=== PATIENT | male | born 1965 | race Caucasian/White ===

== ENCOUNTER 2017-11-19 21:03 | Emergency (ER) | payer BC, OTHER ==
[2017-11-19 21:21] VITALS: BP 116/74; PULSE 78; TEMP 97.9; BMI 26.6
--- NOTE | 2017-11-19 22:10 | PDOC ---
History of Present Illness - General History Source: Patient Exam Limitations: No Limitations - History of Present Illness Initial Comments: 11/19/17 22:18 The patient is a 52 year old male, with no significant past medical history, who presents to the emergency department with, approx one day of chest discomfort. The patient states for the past 24 hours he has had a chest discomfort which is midsternal, non radiating. The patient also reports mild shortness of breath which is made worse with deep inspiration. The patient states he took four 81 mg aspirin for the chest discomfort prior to arrival. He denies recent travel. He denies family history of cardiac disease. He denies any recent fevers, chills, headache or dizziness. He denies any recent nausea, vomit, diarrhea or constipation. He denies any recent dysuria, frequency, urgency or hematuria. Allergies: Iodinated Contrast - Oral and IV Dye, [DYE] Social History: Smoker (2 packs per day). Denies recreational drug use. <Damian Patton - Last Filed: 11/19/17 22:18> - General History Source: Patient <Lacho Enamorado - Last Filed: 11/19/17 23:53> - General Chief Complaint: Chest Pain Stated Complaint: CHEST PAIN Time Seen by Provider: 11/19/17 22:04 Past History <Damian Patton - Last Filed: 11/19/17 22:18> - Past Medical History Anemia: No Asthma: No Cancer: No Cardiac Disorders: No CVA: No COPD: No CHF: No Dementia: No Diabetes: No GI Disorders: No Disorders: No HTN: No Hypercholesterolemia: No Kidney Stones: Yes (X 7) Liver Disease: No Seizures: No Thyroid Disease: No - Surgical History Abdominal Surgery: No Appendectomy: No Cardiac Surgery: No Cholecystectomy: No Lung Surgery: No Neurologic Surgery: No Orthopedic Surgery: No - Suicide/Smoking/Psychosocial Hx Smoking Status: No Smoking History: Current every day smoker Have you smoked in the past 12 months: Yes Number of Cigarettes Smoked Daily: 20 Information on smoking cessation initiated: No 'Breaking Loose' booklet given: 03/10/12 Hx Alcohol Use: Yes (SOCIALLY) Drug/Substance Use Hx: No Substance Use Type: Alcohol Hx Substance Use Treatment: No <Lacho Enamorado - Last Filed: 11/19/17 23:53> - Past Medical History Allergies/Adverse Reactions: Allergies Allergy/AdvReac Type Severity Reaction Status Date / Time Iodinated Contrast- Oral and Allergy Severe nausea, Verified 11/19/17 21:17 IV Dye difficulty [Iodinated Contrast Media - breathing IV Dye] DYE Allergy Severe nausea, Uncoded 11/19/17 21:17 difficulty breathing Home Medications: Ambulatory Orders Sulfamethoxazole/Trimethoprim [Bactrim *Ds*] 1 tab PO BID #20 tablet 11/19/17 Review of Systems - Review of Systems Comments:: 11/19/17 22:19 CONSTITUTIONAL: Absent: fever, chills, diaphoresis, generalized weakness, malaise, loss of appetite HEENT: Absent: rhinorrhea, nasal congestion, throat pain, throat swelling, difficulty swallowing, mouth swelling, ear pain, eye pain, visual Changes CARDIOVASCULAR: Present: (+) Chest discomfort. Absent: syncope, palpitations, irregular heart rate, lightheadedness, peripheral edema RESPIRATORY: Present: (+) Shortness of breath. Absent: cough, dyspnea with exertion, orthopnea, wheezing, stridor, hemoptysis GASTROINTESTINAL: Absent: abdominal pain, abdominal distension, nausea, vomiting, diarrhea, constipation, melena, hematochezia GENITOURINARY: Absent: dysuria, frequency, urgency, hesitancy, hematuria, flank pain, genital pain MUSCULOSKELETAL: Absent: myalgia, arthralgia, joint swelling SKIN: Absent: rash, itching, pallor HEMATOLOGIC/IMMUNOLOGIC: Absent: easy bleeding, easy bruising, lymphadenopathy, frequent infections ENDOCRINE: Absent: unexplained weight gain, unexplained weight loss, heat intolerance, cold intolerance NEUROLOGIC: Absent: headache, focal weakness or paresthesias, dizziness, unsteady gait, seizure, mental status changes, bladder or bowel incontinence PSYCHIATRIC: Absent: anxiety, depression, suicidal or homicidal ideation, hallucinations. <Damian Patton - Last Filed: 11/19/17 22:18> *Physical Exam - Vital Signs Last Vital Signs Temp Pulse Resp BP Pulse Ox 97.9 F 78 16 116/74 100 11/19/17 21:18 11/19/17 21:18 11/19/17 21:18 11/19/17 21:18 11/19/17 21:18 - Physical Exam Comments: 11/19/17 22:20 GENERAL: Well developed, well nourished. Awake and alert. No acute distress. HEENT: Normocephalic, atraumatic. PERRLA, EOMI. No conjunctival pallor. Sclera are non- icteric. Moist mucous membranes. Oropharynx is clear. NECK: Supple. Full ROM. No JVD. Carotid pulses 2+ and symmetric, without bruits. No thyromegaly. No lymphadenopathy. CARDIOVASCULAR: Regular rate and rhythm. No murmurs, rubs, or gallops. Distal pulses are 2+ and symmetric. PULMONARY: No evidence of respiratory distress. Lungs clear to auscultation bilaterally. No wheezing, rales or rhonchi. ABDOMINAL: Soft. Non-tender. Non-distended. No rebound or guarding. No organomegaly. Normoactive bowel sounds. MUSCULOSKELETAL Normal range of motion at all joints. No bony deformities or tenderness. No CVA tenderness. EXTREMITIES: No cyanosis. No clubbing. No edema. No calf tenderness. SKIN: Warm and dry. Normal capillary refill. No rashes. No jaundice. NEUROLOGICAL: Alert, awake, appropriate. Cranial nerves 2-12 intact. No deficits to light touch and temperature in face, upper extremities and lower extremities. No motor deficits in the in face, upper extremities and lower extremities. Normoreflexic in the upper and lower extremities. Normal speech. Toes are down- going bilaterally. Gait is normal without ataxia. PSYCHIATRIC: Cooperative. Good eye contact. Appropriate mood and affect. <Damian Patton - Last Filed: 11/19/17 22:18> - Vital Signs Last Vital Signs Temp Pulse Resp BP Pulse Ox 97.9 F 78 16 116/74 100 11/19/17 21:18 11/19/17 21:18 11/19/17 21:18 11/19/17 21:18 11/19/17 21:18 <Lacho Enamorado - Last Filed: 11/19/17 23:53> Heart Score/ECG Review #1 11/19/17 22:21 Normal Sinus Rhythm at 68 bpm. QT/QTc at 418/[address] Enamorado. <Damian Patton - Last Filed: 11/19/17 22:18> ED Treatment Course - LABORATORY CBC & Chemistry Diagram: 11/19/17 22:31 11/19/17 22:31 <Lacho Enamorado - Last Filed: 11/19/17 23:53> *DC/Admit/Observation/Transfer - Attestations Scribe Attestion: 11/19/17 22:22 Documentation prepared by Damian Patton, acting as emergency medical dispatcher for Lacho Enamorado DO. <Damian Patton - Last Filed: 11/19/17 22:18> - Discharge Dispostion Admit: No <Lacho Enamorado - Last Filed: 11/19/17 23:53> Diagnosis at time of Disposition: Chest pain - Discharge Dispostion Disposition: HOME Condition at time of disposition: Stable - Prescriptions Prescriptions: Sulfamethoxazole/Trimethoprim [Bactrim *Ds*] 1 tab PO BID #20 tablet - Referrals Referrals: Rebecca Galindo MD [Primary Care Provider] - Milind Guan MD, MD [Staff Physician] - Naveed Burrell MD [Staff Physician] - - Patient Instructions Printed Discharge Instructions: DI for Chest Pain Additional Instructions: Please take medication as directed. Avoid smoking cigarettes as much as possible. Follow up with doctor referred to you here in the ER in the next two days if symptoms progress
[2017-11-19 22:40] LABS: BASO % 0.8 % (0-2.0); EOS % 2.4 % (0-4.5); HEMATOCRIT 38.7 % (35.4-49); HEMOGLOBIN 13.8 GM/dL (11.7-16.9); LYMPH % 42.8 % (8-40); MCH 32.4 pg (25.7-33.7); MCHC 35.6 g/dl (32.0-35.9); MEAN CELL VOLUME 90.9 fl (80-96); MEAN PLT VOLUME 7.7 fl (7.5-11.1); MONO % 9.5 % (3.8-10.2); NEUT % 44.5 % (42.8-82.8); PLATELET COUNT 252 K/MM3 (134-434); RBC 4.26 M/mm3 (4.00-5.60); RDW 13.3 % (11.9-15.9); WHITE BLOOD COUNT 5.2 K/mm3 (4.0-10.0)
[2017-11-19 22:57] LABS: MAGNESIUM 2.2 mg/dL (1.8-2.4)
[2017-11-19 23:02] LABS: ALBUMIN 3.9 g/dl (3.4-5.0); ANION GAP 6 (8-16); BILIRUBIN,TOTAL 0.4 mg/dL (0.2-1.0); BLOOD UREA NITROGEN 13 mg/dL (7-18); CALCIUM 8.3 mg/dL (8.5-10.1); CHLORIDE 104 mmol/L (98-107); CO2 29 mmol/L (21-32); CREATININE 0.9 mg/dL (0.7-1.3); POTASSIUM 4.8 mmol/L (3.5-5.1); SGOT/AST 20 U/L (15-37); SGPT/ALT 43 U/L (12-78); SODIUM 139 mmol/L (136-145); TOT PROT 6.8 g/dl (6.4-8.2)
[2017-11-19 23:04] LABS: ALK PHOS 88 U/L (45-117)
[2017-11-19 23:11] LABS: GLUCOSE,RANDOM 112 mg/dL (74-106)
[2017-11-19] MEDS ORDERED: SULFAMETHOXAZOLE/TRIMETHOPRIM 800MG/160MG D.S. TABLET PO ONE (23:49)
[2017-11-19] MEDS ORDERED: SULFAMETHOXAZOLE/TRIMETHOPRIM 800MG/160MG D.S. TABLET ONE (23:54)
--- NOTE | 2017-11-20 14:33 | EKG ---
Test Reason : Blood Pressure : / mmHG Vent. Rate : 068 BPM Atrial Rate : 068 BPM P-R Int : 142 ms QRS Dur : 076 ms QT Int : 418 ms P-R-T Axes : 031 022 018 degrees QTc Int : 444 ms NORMAL SINUS RHYTHM NORMAL ECG WHEN COMPARED WITH ECG OF 15-FEB-2010 09:33, NO SIGNIFICANT CHANGE WAS FOUND Confirmed by TATIANNA ANGELES MD ([id number]) on 11/20/2017 2:33:47 PM Referred By: Confirmed By:TATIANNA ANGELES MD
== END 2017-11-20 00:02 | disposition home or self-care (01) ==
LOC: JER 21:03
DX: R07.9 Chest pain, unspecified (principal)
CPT/HCPCS: 36415; 71046-TC-FY; 80053; 82550; 83690; 83735; 84484; 85025; 93005; 93010; 99282-25

== ENCOUNTER 2019-04-03 11:26 | Inpatient (IN) | payer OTHER ==
[2019-04-03 13:18] VITALS: BMI 29.6
--- NOTE | 2019-04-03 14:47 | HP ---
COWS - Scale Resting Pulse: 1= [place] 81-100 Sweatin= Chills/Flushing Restless Observation: 1= Difficult to Sit Still Pupil Size: 1= Pupils >than Normal Bone or Joint Aches: 2= Severe Diffuse Aches Runny Nose/ Eye Tearin= Runny Nose/Eyes GI Upset > 30mins: 2= Nausea/Diarrhea Tremor Observation: 2= Slight Tremor Visible Yawning Observation: 1= 1-2x During Session Anxiety or Irritability: 2=Irritable/Anxious Goose Flesh Skin: 0=Smooth Skin COWS Score: 15 CIWA Score Nausea/Vomitin Muscle Tremors: 2 Anxiety: 2 Agitation: 2 Paroxysmal Sweats: 1-Minimal Palms Moist Orientation: 0-Oriented Tacttile Disturbances: 1-Very Mild Itch/Numbness Auditory Disturbances: 0-None Visual Disturbances: 1-Very Mild Sensitivity Headache: 2-Mild CIWA-Ar Total Score: 13 - Admission Criteria [facility] Guidelines: Admission for Medically Managed Detox: Requires at least one of the followin. CIWA greater than 12 2. Seizures within the past 24 hours 3. Delirium tremens within the past 24 hours 4. Hallucinations within the past 24 hours 5. Acute intervention needed for co occurring medical disorder 6. Acute intervention needed for co occurring psychiatric disorder 7. Severe withdrawal that cannot be handled at a lower level of care (continued vomiting, continued diarrhea, abnormal vital signs) requiring intravenous medication and/or fluids 8. Admission ROS [facility] Chief Complaint: i need help to stop using from heroin and alcohol Allergies/Adverse Reactions: Allergies Allergy/AdvReac Type Severity Reaction Status Date / Time Iodinated Contrast- Oral and Allergy Mild Verified 04/03/19 17:08 IV Dye History of Present Illness: this 53 years old male with heroin and alcohol dependence,seeking detox, withdrawal symptom, last detox 15 years ago denied seizure hyperchoesterolemia low back pain with sciatica right depression longest sobriety 1 year plan for out patient program Exam Limitations: No Limitations - Ebola screening Have you traveled outside of the country in the last 21 days: No (N) Have you had contact with anyone from an Ebola affected area: No Do you have a fever: No - Review of Systems Constitutional: Chills, Loss of Appetite, Malaise, Night Sweats, Changes in sleep, Weakness EENT: reports: Tearing, Nose Congestion Respiratory: reports: No Symptoms reported Cardiac: reports: No Symptoms Reported GI: reports: Nausea, Vomiting, Abdominal cramping : reports: No Symptoms Reported Musculoskeletal: reports: Back Pain, Joint Pain, Muscle Pain, Joint Stiffness Integumentary: reports: Dryness Neuro: reports: Headache, Tremors Endocrine: reports: No Symptoms Reported Hematology: reports: No Symptoms Reported Psychiatric: reports: No Sypmtoms Reported, Judgement Intact, Mood/Affect Appropiate, Orientated x3, Depressed Other Systems: Reviewed and Negative Patient History - Patient Medical History Hx Anemia: No Hx Asthma: No Hx Chronic Obstructive Pulmonary Disease (COPD): No Hx Cancer: No Hx Cardiac Disorders: No Hx Congestive Heart Failure: No Hx Hypertension: No Hx Hypercholesterolemia: Yes Hx Pacemaker: No HX Cerebrovascular Accident: No Hx Seizures: No Hx Dementia: No Hx Diabetes: No Hx Gastrointestinal Disorders: No Hx Liver Disease: No Hx Genitourinary Disorders: No Hx Sexually Transmitted Disorders: No Hx Renal Disease (ESRD): No Hx Thyroid Disease: No Hx Human Immunodeficiency Virus (HIV): No (last 2013 negative) Hx Hepatitis C: No Hx Depression: Yes Hx Suicide Attempt: No Hx Bipolar Disorder: No Hx Schizophrenia: No Other Medical History: no suicidal,no homicidal - Patient Surgical History Past Surgical History: Yes Hx Neurologic Surgery: No Hx Cataract Extraction: No Hx Cardiac Surgery: No Hx Lung Surgery: No Hx Breast Surgery: No Hx Breast Biopsy: No Hx Abdominal Surgery: No Hx Appendectomy: No Hx Cholecystectomy: No Hx Genitourinary Surgery: No Hx Section: No Hx Orthopedic Surgery: No Hx Hysterectomy: No Other Surgical History: INGUINAL HERNIA, RIGHT 10 years ago Anesthesia Reaction: No - PPD History Previous Implant?: Yes Documented Results: Negative w/o proof PPD to be Administered?: No - Smoking Cessation Smoking history: Current every day smoker Have you smoked in the past 12 months: Yes Aproximately how many cigarettes per day: 20 Hx Chewing Tobacco Use: No Initiated information on smoking cessation: Yes 'Breaking Loose' booklet given: 04/03/19 - Substance & Tx. History Hx Alcohol Use: Yes Hx Substance Use: Yes Substance Use Type: Alcohol, Heroin Hx Substance Use Treatment: Yes (2003 unknown facility) - Substances abused Alcohol Substance route: Oral Frequency: Daily Amount used: 1 pint of scotch/bourbon Age of first use: 28 Date of last use: 04/01/19 Heroin Substance route: Inhalation Frequency: Daily Amount used: 10 bags Age of first use: 28 Date of last use: 04/03/19 Alprazolam (Xanax) Substance route: Oral Frequency: 3-6 times per week Amount used: 2 mgs to 2.5 mgs Age of first use: 27 Date of last use: 04/01/19 Family Disease History - Family Disease History Family History: Denies Family Disease History: Diabetes: Father (alive), Heart Disease: Father, Other: Mother () Admission Physical Exam [facility] - Vital Signs Vital Signs: Vital Signs - 24 hr 04/03/19 04/03/19 13:04 13:31 Temperature 98.7 F 98.7 F Pulse Rate 90 90 Respiratory 18 18 Rate Blood Pressure 117/68 117/68 - Physical General Appearance: Yes: Moderate Distress, Tremorous, Irritable, Sweating, Anxious HEENTM: Yes: Normal ENT Inspection, [place], Pharynx Normal Respiratory: Yes: Lungs Clear, Normal Breath Sounds, No Respiratory Distress Neck: Yes: Within Normal Limits, Supple, Trachea in good position Breast: Yes: Within Normal Limits Cardiology: Yes: Within Normal Limits, Regular Rhythm, Regular Rate, S1, S2 Abdominal: Yes: Within Normal Limits, Normal Bowel Sounds, Non Tender, Flat, Soft Genitourinary: Yes: Within Normal Limits Back: Yes: Muscle Spasm Musculoskeletal: Yes: Back pain, Muscle Pain Extremities: Yes: Tremors, Other (contraction of tendon in left hand for 15 years) Neurological: Yes: planning feeder II-XII NML intact, Fully Oriented, Alert, Motor Strength 5/5 Integumentary: Yes: Dry Lymphatic: Yes: Within Normal Limits - Diagnostic (1) Opioid dependence with withdrawal Current Visit: Yes Status: Acute (2) Alcohol dependence with uncomplicated withdrawal Current Visit: Yes Status: Acute (3) Sedative, hypnotic or anxiolytic dependence with withdrawal, uncomplicated Current Visit: Yes Status: Acute (4) Nicotine dependence Current Visit: Yes Status: Acute (5) Dehydration Current Visit: Yes Status: Acute (6) Hypercholesterolemia Current Visit: Yes Status: Acute Cleared for Admission [facility] - Detox or Rehab [facility] Level of Care: Medically Managed Detox Regimen/Protocol: Methadone/Valium Breathalyzer - Breathalyzer Breathalyzer: 0 Urine Drug Screen - Test Device Lot number: [id number]. Expiration date: 12/29/20 - Results Drug screen NEGATIVE: No Urine drug screen results: THC-Marijuana, MET-Methamphetamine, FEN-Fentanyl, MOP -Opiates, OXY-Oxycodone, MTD-Methadone, BZO-Benzodiazepines Inpatient Rehab Admission - Rehab Decision to Admit Inpatient rehab admission?: No
[2019-04-03] MEDS ORDERED: MAGNESIUM CITRATE 300 ML BOTTLE PO PRN (15:06)
[2019-04-03] MEDS ORDERED: hydrOXYzine HCL 25 MG TABLET (FP) PO PRN (15:06)
[2019-04-03] MEDS ORDERED: ACETAMINOPHEN 325 MG TABLET (FP) PO PRN ×2 (15:06)
[2019-04-03] MEDS ORDERED: BISMUTH SUBSALICYLATE 524 MG/30 ML UD PO PRN (15:06)
[2019-04-03] MEDS ORDERED: MAG HYDROX/AL HYDROX/SIMETH 30 ML UNIT-DOSE CUP PO PRN (15:06)
[2019-04-03] MEDS ORDERED: METHADONE HCL 10 MG TABLET (FOR DETOX USE ONLY) PO ONE (15:06)
[2019-04-03] MEDS ORDERED: MAGNESIUM HYDROX 2400MG/30ML ORAL SUSPENSION 30 ML CUP PO PRN (15:06)
[2019-04-03] MEDS ORDERED: MENTHOL/PHENOL 1 EACH UD MM PRN (15:06)
[2019-04-03] MEDS ORDERED: IBUPROFEN 400 MG TABLET (FP) PO PRN (15:06)
[2019-04-03] MEDS: diazePAM 5 MG TABLET PO PRN (17:31)
[2019-04-03] MEDS: cloNIDine HCL 0.1 MG TABLET PO PRN (17:33)
[2019-04-03] MEDS: THIAMINE HCL 100 MG TABLET (FP) PO SCH (22:44)
[2019-04-03] MEDS: diazePAM 5 MG TABLET PO SCH (22:45)
[2019-04-03] MEDS: ATORVASTATIN CA 20 MG TABLET (FP) PO SCH (22:45)
[2019-04-03] MEDS: MELATONIN 5 MG TABLETS PO PRN (22:45)
[2019-04-04] MEDS: diazePAM 5 MG TABLET PO SCH ×3 (06:28→22:05)
[2019-04-04] MEDS ORDERED: METHADONE HCL 10 MG TABLET (FOR DETOX USE ONLY) ONE (08:21)
[2019-04-04] MEDS ORDERED: METHADONE HCL 5 MG TABLET (FOR DETOX USE ONLY) ONE (08:22)
[2019-04-04] MEDS ORDERED: METHADONE (DETOX) 20 MG, METHADONE (DETOX) 5 MG PO ONE (10:00)
[2019-04-04] MEDS: PRENATAL VITAMINS W/ FOLIC ACID TABLET (FP) PO SCH (10:08)
[2019-04-04] MEDS: diazePAM 5 MG TABLET PO PRN ×2 (10:09→17:17)
[2019-04-04] MEDS: METHOCARBAMOL 500 MG TABLET PO PRN ×2 (10:11→17:19)
[2019-04-04 11:35] LABS: HEMOGLOBIN 15.7 GM/dL (11.7-16.9); MCHC 34.1 g/dl (32.0-35.9); MEAN CELL VOLUME 90.8 fl (80-96); MEAN PLT VOLUME 8.1 fl (7.5-11.1); PLATELET COUNT 269 K/MM3 (134-434); RBC 5.07 M/mm3 (4.00-5.60); RDW 13.6 % (11.9-15.9); WHITE BLOOD COUNT 5.6 K/mm3 (4.0-10.0)
[2019-04-04 11:37] LABS: ALBUMIN 4.2 g/dl (3.4-5.0); BILIRUBIN,TOTAL 1.6 mg/dL (0.2-1); BLOOD UREA NITROGEN 12.6 mg/dL (7-18); CALCIUM 9.2 mg/dL (8.5-10.1); CREATININE 0.9 mg/dL (0.55-1.3); POTASSIUM 4.3 mmol/L (3.5-5.1); TOT PROT 7.6 g/dl (6.4-8.2)
--- NOTE | 2019-04-04 11:52 | PN ---
[facility] CIWA - CIWA Score Nausea/Vomitin-Mild Nausea/No Vomiting Muscle Tremors: 3 Anxiety: 3 Agitation: 3 Paroxysmal Sweats: 1-Minimal Palms Moist Orientation: 0-Oriented Tacttile Disturbances: 0-None Auditory Disturbances: 0-None Visual Disturbances: 0-None Headache: 1-Very Mild CIWA-Ar Total Score: 12 BHS COWS - Scale Resting Pulse: 0= [place] 80 or Below Sweatin= Chills/Flushing Restless Observation: 1= Difficult to Sit Still Pupil Size: 0= Normal to Room Light Bone or Joint Aches: 2= Severe Diffuse Aches Runny Nose/ Eye Tearin= Nasal Congestion GI Upset > 30mins: 2= Nausea/Diarrhea Tremor Observation of Outstretched Hands: 1= Tremor [place], Not Seen Yawning Observation: 2= >3x During Session Anxiety or Irritability: 2=Irritable/Anxious Goose Flesh Skin: 0=Smooth Skin COWS Score: 12 S Progress Note (SOAP) Subjective: 53 yeare old male admitted on 04/03/19 for alcohol and opiate withdrawal sx management feeling restlessness that "I am using heroin for 25 years" discuss medication assisted treatment program patient agrees to consider suboxone maintaining program Objective: 04/04/19 11:52 Vital Signs Temperature 98.2 F 04/04/19 09:28 Pulse Rate 53 L 04/04/19 09:28 Respiratory Rate 18 04/04/19 09:28 Blood Pressure 123/67 04/04/19 09:28 O2 Sat by Pulse Oximetry (%) Laboratory Last Values WBC 5.6 K/mm3 (4.0-10.0) 04/04/19 08:00 RBC 5.07 M/mm3 (4.00-5.60) 04/04/19 08:00 Hgb 15.7 GM/dL (11.7-16.9) 04/04/19 08:00 Hct 46.0 % (35.4-49) D 04/04/19 08:00 MCV 90.8 fl (80-96) 04/04/19 08:00 MCH 31.0 pg (25.7-33.7) 04/04/19 08:00 MCHC 34.1 g/dl (32.0-35.9) 04/04/19 08:00 RDW 13.6 % (11.9-15.9) 04/04/19 08:00 Plt Count 269 K/MM3 (134-434) 04/04/19 08:00 MPV 8.1 fl (7.5-11.1) 04/04/19 08:00 Sodium 142 mmol/L (136-145) 04/04/19 08:00 Potassium 4.3 mmol/L (3.5-5.1) 04/04/19 08:00 Chloride 105 mmol/L (98-107) 04/04/19 08:00 Carbon Dioxide 30 mmol/L (21-32) 04/04/19 08:00 Anion Gap 6 MMOL/L (8-16) L 04/04/19 08:00 BUN 12.6 mg/dL (7-18) 04/04/19 08:00 Creatinine 0.9 mg/dL (0.55-1.3) 04/04/19 08:00 Est GFR (CKD-EPI)AfAm 114.21 04/04/19 08:00 Est GFR (CKD-EPI)NonAf 98.54 04/04/19 08:00 Random Glucose 77 mg/dL (74-106) 04/04/19 08:00 Calcium 9.2 mg/dL (8.5-10.1) 04/04/19 08:00 Total Bilirubin 1.6 mg/dL (0.2-1) H 04/04/19 08:00 AST 23 U/L (15-37) 04/04/19 08:00 ALT 37 U/L (13-61) 04/04/19 08:00 Alkaline Phosphatase 98 U/L (45-117) 04/04/19 08:00 Total Protein 7.6 g/dl (6.4-8.2) 04/04/19 08:00 Albumin 4.2 g/dl (3.4-5.0) 04/04/19 08:00 RPR Titer Nonreactive (NONREACTIVE) 04/04/19 08:00 lab noted Assessment: 04/04/19 11:52 alcohol and opiate withdrawal sx Plan: continue alcohol and opiate detox
[2019-04-04] MEDS: cloNIDine HCL 0.1 MG TABLET PO PRN ×2 (15:06→19:58)
[2019-04-04] MEDS: THIAMINE HCL 100 MG TABLET (FP) PO SCH (22:04)
[2019-04-04] MEDS: ATORVASTATIN CA 20 MG TABLET (FP) PO SCH (22:04)
[2019-04-04] MEDS: MELATONIN 5 MG TABLETS PO PRN (22:05)
[2019-04-05] MEDS: diazePAM 5 MG TABLET PO PRN ×4 (03:54→22:26)
[2019-04-05] MEDS: cloNIDine HCL 0.1 MG TABLET PO PRN ×4 (05:55→22:49)
[2019-04-05] MEDS: diazePAM 5 MG TABLET PO SCH ×2 (05:55→18:04)
[2019-04-05] MEDS: PRENATAL VITAMINS W/ FOLIC ACID TABLET (FP) PO SCH (09:33)
[2019-04-05] MEDS ORDERED: METHADONE HCL 10 MG TABLET (FOR DETOX USE ONLY) PO ONE (10:00)
--- NOTE | 2019-04-05 11:55 | EKG ---
Test Reason : Blood Pressure : / mmHG Vent. Rate : 054 BPM Atrial Rate : 054 BPM P-R Int : 132 ms QRS Dur : 088 ms QT Int : 500 ms P-R-T Axes : 000 031 013 degrees QTc Int : 474 ms SINUS BRADYCARDIA OTHERWISE NORMAL ECG WHEN COMPARED WITH ECG OF 19-NOV-2017 21:16, NO SIGNIFICANT CHANGE WAS FOUND Confirmed by ELICEO CUELLO MD ([id number]) on 04/05/2019 11:54:58 AM Referred By: Confirmed By:ELICEO CUELLO MD
--- NOTE | 2019-04-05 12:49 | PN ---
S CIWA - CIWA Score Nausea/Vomitin-Mild Nausea/No Vomiting Muscle Tremors: 2 Anxiety: 2 Agitation: 2 Paroxysmal Sweats: 1-Minimal Palms Moist Orientation: 0-Oriented Tacttile Disturbances: 0-None Auditory Disturbances: 0-None Visual Disturbances: 0-None Headache: 1-Very Mild CIWA-Ar Total Score: 9 BHS COWS - Scale Resting Pulse: 0= [place] 80 or Below Sweatin= Chills/Flushing Restless Observation: 0= Sits Still Pupil Size: 0= Normal to Room Light Bone or Joint Aches: 1= Mild Discomfort Runny Nose/ Eye Tearin= Nasal Congestion GI Upset > 30mins: 2= Nausea/Diarrhea Tremor Observation of Outstretched Hands: 1= Tremor [place], Not Seen Yawning Observation: 1= 1-2x During Session Anxiety or Irritability: 2=Irritable/Anxious Goose Flesh Skin: 0=Smooth Skin COWS Score: 9 S Progress Note (SOAP) Subjective: 53 years old male anxiously pacing back and forth on hallway reporting suboxon helped him stay sober months to one year by history but hesitate returning back to suboxone provider introduce revelation where to begin suboxone or vivitrol community resources will be provided upon discharge Objective: 04/05/19 13:07 Vital Signs Temperature 97.0 F L 04/05/19 09:37 Pulse Rate 70 04/05/19 09:37 Respiratory Rate 18 04/05/19 09:37 Blood Pressure 109/76 04/05/19 09:37 O2 Sat by Pulse Oximetry (%) Laboratory Last Values WBC 5.6 K/mm3 (4.0-10.0) 04/04/19 08:00 RBC 5.07 M/mm3 (4.00-5.60) 04/04/19 08:00 Hgb 15.7 GM/dL (11.7-16.9) 04/04/19 08:00 Hct 46.0 % (35.4-49) D 04/04/19 08:00 MCV 90.8 fl (80-96) 04/04/19 08:00 MCH 31.0 pg (25.7-33.7) 04/04/19 08:00 MCHC 34.1 g/dl (32.0-35.9) 04/04/19 08:00 RDW 13.6 % (11.9-15.9) 04/04/19 08:00 Plt Count 269 K/MM3 (134-434) 04/04/19 08:00 MPV 8.1 fl (7.5-11.1) 04/04/19 08:00 Sodium 142 mmol/L (136-145) 04/04/19 08:00 Potassium 4.3 mmol/L (3.5-5.1) 04/04/19 08:00 Chloride 105 mmol/L (98-107) 04/04/19 08:00 Carbon Dioxide 30 mmol/L (21-32) 04/04/19 08:00 Anion Gap 6 MMOL/L (8-16) L 04/04/19 08:00 BUN 12.6 mg/dL (7-18) 04/04/19 08:00 Creatinine 0.9 mg/dL (0.55-1.3) 04/04/19 08:00 Est GFR (CKD-EPI)AfAm 114.21 04/04/19 08:00 Est GFR (CKD-EPI)NonAf 98.54 04/04/19 08:00 Random Glucose 77 mg/dL (74-106) 04/04/19 08:00 Calcium 9.2 mg/dL (8.5-10.1) 04/04/19 08:00 Total Bilirubin 1.6 mg/dL (0.2-1) H 04/04/19 08:00 AST 23 U/L (15-37) 04/04/19 08:00 ALT 37 U/L (13-61) 04/04/19 08:00 Alkaline Phosphatase 98 U/L (45-117) 04/04/19 08:00 Total Protein 7.6 g/dl (6.4-8.2) 04/04/19 08:00 Albumin 4.2 g/dl (3.4-5.0) 04/04/19 08:00 RPR Titer Nonreactive (NONREACTIVE) 04/04/19 08:00 lab noted Assessment: 04/05/19 13:08 alcohol and opiate withdrawal sx Plan: continue alcohol and opiate detox
[2019-04-05 13:34] LABS: EPI CELLS 2.9 /HPF (0-5/HPF); HYALINE CASTS 4 /lpf (0-8); PH,URINE 6.5 (5.0-8.0); URINE APPEARANCE CLEAR; URINE BACTERIA 64.7 /hpf (NEGATIVE); URINE BILIRUBIN NEGATIVE (NEGATIVE); URINE COLOR YELLOW; URINE GLUCOSE (UA) NEGATIVE (NEGATIVE); URINE KETONE TRACE (NEGATIVE); URINE LEUK ESTERASE TRACE (NEGATIVE); URINE NITRITE NEGATIVE (NEGATIVE); URINE PROTEIN NEGATIVE (NEGATIVE); URINE RBC 3 /hpf (0-4); URINE UROBILINOGEN 0.2 mg/dL (0.2-1.0); URINE WBC 3 /hpf (0-5)
[2019-04-05] MEDS: THIAMINE HCL 100 MG TABLET (FP) PO SCH (22:25)
[2019-04-05] MEDS: ATORVASTATIN CA 20 MG TABLET (FP) PO SCH (22:25)
[2019-04-05] MEDS: METHOCARBAMOL 500 MG TABLET PO PRN (22:27)
[2019-04-05] MEDS: MELATONIN 5 MG TABLETS PO PRN (22:27)
[2019-04-06] MEDS: diazePAM 5 MG TABLET PO PRN (04:15)
[2019-04-06] MEDS ORDERED: diazePAM 5 MG TABLET PO ONE (06:00)
[2019-04-06 06:19] VITALS: BP 89/67
[2019-04-06 09:18] VITALS: PULSE 105; TEMP 97.9
[2019-04-06] MEDS ORDERED: METHADONE HCL 10 MG TABLET (FOR DETOX USE ONLY) ONE (09:20)
[2019-04-06] MEDS ORDERED: METHADONE HCL 5 MG TABLET (FOR DETOX USE ONLY) ONE (09:20)
[2019-04-06] MEDS: PRENATAL VITAMINS W/ FOLIC ACID TABLET (FP) PO SCH (09:22)
[2019-04-06] MEDS ORDERED: METHADONE (DETOX) 10 MG, METHADONE (DETOX) 5 MG PO ONE (10:00)
--- NOTE | 2019-04-06 11:40 | DS ---
[facility] Detox Discharge Summary Admission Date: 04/03/19 Discharge Date: 04/06/19 - History Present History: Alcohol Dependence, Opioid Dependence Additional Comments: 53 years old male admitted on 04/03/19 for acute alcohol and opiate withdrawal sx management prefers to begin alcohol and opiate rehab process today that "I have suboxone at home" patient prefers suboxone maintenance program instead of methadone patient reported that he is doing well with valium and methadone detox regime no complication at present time patient is alert oriented x 3 no shortness of breath no dizziness speech clearly coherently steady gait last dose valium given and patient prefers to leave the detox for suboxone suboxone resources given patient agrees to follow up with suboxone that he prefers for opiate misuse treatment Pertinent Past History: patient agrees to consider return to [facility] - Physical Exam Results Vital Signs: Vital Signs Temperature 97.9 F 04/06/19 09:15 Pulse Rate 105 H 04/06/19 09:15 Respiratory Rate 112 H 04/06/19 09:15 Blood Pressure 89/67 L 04/06/19 09:15 O2 Sat by Pulse Oximetry (%) Pertinent Admission Physical Exam Findings: alcohol and opiate withdrawal sx Vital Signs Temperature 97.9 F 04/06/19 09:15 Pulse Rate 105 H 04/06/19 09:15 Respiratory Rate 112 H 04/06/19 09:15 Blood Pressure 89/67 L 04/06/19 09:15 O2 Sat by Pulse Oximetry (%) Laboratory Last Values WBC 5.6 K/mm3 (4.0-10.0) 04/04/19 08:00 RBC 5.07 M/mm3 (4.00-5.60) 04/04/19 08:00 Hgb 15.7 GM/dL (11.7-16.9) 04/04/19 08:00 Hct 46.0 % (35.4-49) D 04/04/19 08:00 MCV 90.8 fl (80-96) 04/04/19 08:00 MCH 31.0 pg (25.7-33.7) 04/04/19 08:00 MCHC 34.1 g/dl (32.0-35.9) 04/04/19 08:00 RDW 13.6 % (11.9-15.9) 04/04/19 08:00 Plt Count 269 K/MM3 (134-434) 04/04/19 08:00 MPV 8.1 fl (7.5-11.1) 04/04/19 08:00 Sodium 142 mmol/L (136-145) 04/04/19 08:00 Potassium 4.3 mmol/L (3.5-5.1) 04/04/19 08:00 Chloride 105 mmol/L (98-107) 04/04/19 08:00 Carbon Dioxide 30 mmol/L (21-32) 04/04/19 08:00 Anion Gap 6 MMOL/L (8-16) L 04/04/19 08:00 BUN 12.6 mg/dL (7-18) 04/04/19 08:00 Creatinine 0.9 mg/dL (0.55-1.3) 04/04/19 08:00 Est GFR (CKD-EPI)AfAm 114.21 04/04/19 08:00 Est GFR (CKD-EPI)NonAf 98.54 04/04/19 08:00 Random Glucose 77 mg/dL (74-106) 04/04/19 08:00 Calcium 9.2 mg/dL (8.5-10.1) 04/04/19 08:00 Total Bilirubin 1.6 mg/dL (0.2-1) H 04/04/19 08:00 AST 23 U/L (15-37) 04/04/19 08:00 ALT 37 U/L (13-61) 04/04/19 08:00 Alkaline Phosphatase 98 U/L (45-117) 04/04/19 08:00 Total Protein 7.6 g/dl (6.4-8.2) 04/04/19 08:00 Albumin 4.2 g/dl (3.4-5.0) 04/04/19 08:00 Urine Color Yellow 04/05/19 11:25 Urine Appearance Clear 04/05/19 11:25 Urine pH 6.5 (5.0-8.0) 04/05/19 11:25 Ur Specific Iaeger 1.023 (1.010-1.035) 04/05/19 11:25 Urine Protein Negative (NEGATIVE) 04/05/19 11:25 Urine Glucose (UA) Negative (NEGATIVE) 04/05/19 11:25 Urine Ketones Trace (NEGATIVE) H 04/05/19 11:25 Urine Blood Negative (NEGATIVE) 04/05/19 11:25 Urine Nitrite Negative (NEGATIVE) 04/05/19 11:25 Urine Bilirubin Negative (NEGATIVE) 04/05/19 11:25 Urine Urobilinogen 0.2 mg/dL (0.2-1.0) 04/05/19 11:25 Ur Leukocyte Esterase Trace (NEGATIVE) 04/05/19 11:25 Urine WBC (Auto) 3 /hpf (0-5) 04/05/19 11:25 Urine RBC (Auto) 3 /hpf (0-4) 04/05/19 11:25 Urine Casts (Auto) 4 /lpf (0-8) 04/05/19 11:25 U Epithel Cells (Auto) 2.9 /HPF (0-5/HPF) 04/05/19 11:25 Urine Bacteria (Auto) 64.7 /hpf (NEGATIVE) 04/05/19 11:25 RPR Titer Nonreactive (NONREACTIVE) 04/04/19 08:00 lab noted encourage the patient bring in medication list and lab result to aftercare for follow up - Treatment Hospital Course: Detox Protocol Followed, Detoxed Safely, Responded well, Discharged Condition Good, Rehab Referral Accepted Patient has Accepted a Re[facility] Referral to: [facility] - Medication Discharge Medications: Ambulatory Orders Duloxetine HCl [Cymbalta -] 20 mg PO DAILY 04/03/19 LORazepam [Ativan] 1 mg PO DAILY PRN 04/03/19 Atorvastatin Calcium 20 mg PO HS #30 tablet 04/06/19 - Diagnosis (1) Alcohol dependence with uncomplicated withdrawal Current Visit: Yes Status: Acute (2) Hypercholesterolemia Current Visit: Yes Status: Chronic (3) Nicotine dependence Current Visit: Yes Status: Acute Qualifiers: Nicotine product type: cigarettes Substance use status: in withdrawal Qualified Code(s): F17.213 - Nicotine dependence, cigarettes, with withdrawal (4) Opioid dependence with withdrawal Current Visit: Yes Status: Acute - AMA Did Patient Leave Against Medical Advice: No
[2019-04-07] MEDS ORDERED: METHADONE HCL 10 MG TABLET (FOR DETOX USE ONLY) PO ONE (10:00)
[2019-04-08] MEDS ORDERED: METHADONE HCL 5 MG TABLET (FOR DETOX USE ONLY) PO ONE (06:00)
== END 2019-04-06 08:45 | disposition home or self-care (01) | DRG 897 ==
LOC: YASAS 11:26 → Y3N 15:52
PROVIDERS: ADMIT Surgery; ATTEND Surgery
PROC: HZ2ZZZZ Detoxification Services for Substance Abuse Treatment (ICD-10-PCS; principal; 2019-04-03)
DX: F11.23 Opioid dependence with withdrawal (principal); F10.230 Alcohol dependence with withdrawal, uncomplicated; F13.230 Sedative, hypnotic or anxiolytic dependence with withdrawal, uncomplicated; F17.213 Nicotine dependence, cigarettes, with withdrawal; E78.00 Pure hypercholesterolemia, unspecified; M54.41 Lumbago with sciatica, right side; E86.0 Dehydration
CPT/HCPCS: 36415; 80053; 81003; 85027; 86480; 86593; 93005; 93010; J0735

== ENCOUNTER 2019-04-29 13:49 | Inpatient (IN) | payer OTHER ==
--- NOTE | 2019-04-29 14:32 | PDOC ---
Rapid Medical Evaluation Chief Complaint: Injury Time Seen by Provider: 04/29/19 14:25 Medical Evaluation: Allergies Allergy/AdvReac Type Severity Reaction Status Date / Time Iodinated Contrast Media Allergy Mild Verified 04/03/19 17:08 04/29/19 14:26 53 year old male s/p fall from a tree (20 ft) 2 days ago c/o pain to the right side rib, right sided abdominal pain, reports hitting head Pe: patient alert ox3. breath sound clears, right rib tenderness . no hematoma to abdomen or flank area noted. tenderness to RUQ A: trauma rib pain; abdominal pain P: xray UA Discharge Disposition - Diagnosis Rib pain on right side, Fall from tree, initial encounter - Discharge Dispostion Last Admission D/C Date: 04/06/19 - Referrals Referrals: Rebecca Galindo MD [Primary Care Provider] - - Patient Instructions - Post Discharge Activity
[2019-04-29 14:34] VITALS: BMI 26.6
[2019-04-29] MEDS ORDERED: SODIUM CHLORIDE 0.9% 1000 ML INFUS.BAG IV ONE (16:12)
[2019-04-29] MEDS ORDERED: morphine CARPU-JECT 4 MG/1 ML DISP.SYRIN IVPUSH ONE ×2 (17:19→19:56)
[2019-04-29] MEDS ORDERED: morphine SULFATE 4 MG/ML VIAL ONE ×2 (17:21→20:04)
[2019-04-29 17:44] LABS: BASO % 0.6 % (0-2.0); EOS % 1.2 % (0-4.5); HEMATOCRIT 37.8 % (35.4-49); HEMOGLOBIN 12.9 GM/dL (11.7-16.9); LYMPH % 36.8 % (8-40); MCH 31.1 pg (25.7-33.7); MCHC 34.2 g/dl (32.0-35.9); MONO % 10.3 % (3.8-10.2); NEUT % 51.1 % (42.8-82.8); PLATELET COUNT 310 K/MM3 (134-434); RBC 4.15 M/mm3 (4.00-5.60); RDW 13.5 % (11.9-15.9); WHITE BLOOD COUNT 6.4 K/mm3 (4.0-10.0)
[2019-04-29 18:26] LABS: ALBUMIN 3.8 g/dl (3.4-5.0); BILIRUBIN,TOTAL 0.8 mg/dL (0.2-1); BLOOD UREA NITROGEN 11.2 mg/dL (7-18); CALCIUM 8.9 mg/dL (8.5-10.1); CREATININE 0.8 mg/dL (0.55-1.3); POTASSIUM 4.2 mmol/L (3.5-5.1); TOT PROT 6.9 g/dl (6.4-8.2)
--- NOTE | 2019-04-29 18:56 | PDOC ---
Documentation entered by Helder Morel SCRIBE, acting as scribe for Inez Biswas MD. Inez Biswas MD: This documentation has been prepared by the Maria Teresa zimmer Xhesika, SCRIBE, under my direction and personally reviewed by me in its entirety. I confirm that the documentation accurately reflects all work, treatment, procedures, and medical decision making performed by me. History of Present Illness - General Chief Complaint: Injury Stated Complaint: RT. SIDE PAIN Time Seen by Provider: 04/29/19 14:25 History Source: Patient Exam Limitations: No Limitations - History of Present Illness Initial Comments: 04/29/19 16:14 The patient is a 53 year old male with a significant PMH of previous DVT (on Eliquis until last week) who presents to the emergency department with R sided abdominal pain and R sided rib pain. Patient states he fell 20ft from a tree 2 days ago and hit his head. Patient denies headache or dizziness. The patient denies chest pain, shortness of breath. Denies fever, chills, cough , nausea, vomiting, diarrhea and constipation. Denies dysuria, frequency, urgency and hematuria. Allergies: Iodinated contrast media Social history: Current everyday smoker PCP: Rebecca Ceron Past History - Past Medical History Allergies/Adverse Reactions: Allergies Allergy/AdvReac Type Severity Reaction Status Date / Time Iodinated Contrast Media Allergy Mild Verified 04/29/19 14:34 Home Medications: Ambulatory Orders Duloxetine HCl [Cymbalta -] 20 mg PO DAILY 04/03/19 LORazepam [Ativan] 1 mg PO DAILY PRN 04/03/19 Atorvastatin Calcium 20 mg PO HS #30 tablet 04/06/19 Anemia: No Asthma: No Cancer: No Cardiac Disorders: No CVA: No COPD: No CHF: No Dementia: No Diabetes: No GI Disorders: No Disorders: No HTN: No Hypercholesterolemia: Yes Kidney Stones: No Liver Disease: No Seizures: No Thyroid Disease: No - Surgical History Abdominal Surgery: No Appendectomy: No Cardiac Surgery: No Cholecystectomy: No Lung Surgery: No Neurologic Surgery: No Orthopedic Surgery: No - Reproductive History Testicular Surgery: No - Immunization History Immunization Up to Date: Yes - Suicide/Smoking/Psychosocial Hx Smoking Status: No Smoking History: Current every day smoker Have you smoked in the past 12 months: Yes Number of Cigarettes Smoked Daily: 10 Information on smoking cessation initiated: Yes 'Breaking Loose' booklet given: 04/03/19 Hx Alcohol Use: No Drug/Substance Use Hx: No Substance Use Type: Alcohol, Heroin Hx Substance Use Treatment: Yes (2003 unknown facility) Review of Systems - Review of Systems Able to Perform ROS?: Yes Comments:: 04/29/19 16:16 GENERAL/CONSTITUTIONAL: No fever or chills. No weakness. HEAD, EYES, EARS, NOSE AND THROAT: No change in vision. No ear pain or discharge. No sore throat. CARDIOVASCULAR: No chest pain or shortness of breath. RESPIRATORY: No cough, wheezing, or hemoptysis. GASTROINTESTINAL: No nausea, vomiting, diarrhea or constipation. GENITOURINARY: No dysuria, frequency, or change in urination. MUSCULOSKELETAL: No joint or muscle swelling. No neck or back pain. (+) R abdominal pain. (+) R rib pain. SKIN: No rash NEUROLOGIC: No headache, vertigo, loss of consciousness, or change in strength/ sensation. ENDOCRINE: No increased thirst. No abnormal weight change. HEMATOLOGIC/LYMPHATIC: No anemia, easy bleeding, or history of blood clots. ALLERGIC/IMMUNOLOGIC: No hives or skin allergy. *Physical Exam - Vital Signs Last Vital Signs Temp Pulse Resp BP Pulse Ox 98.4 F 96 H 18 112/70 97 04/29/19 14:25 04/29/19 14:25 04/29/19 14:25 04/29/19 14:25 04/29/19 14:25 - Physical Exam Comments: 04/29/19 17:26 awake alert head atraumatic. no midline cervical spine tenderness. right lateral rib ttp, no rebound no crepitus. no step off. lungs clera bilat. heart rrr no mrg abd soft nt right cva ttp over lower posterior ribs. ext atraumatic, from NT GCS 15, skin warm and dry no laceration no eccymosis. ED Treatment Course - LABORATORY CBC & Chemistry Diagram: 04/29/19 17:15 04/29/19 17:15 - RADIOLOGY Radiology Studies Ordered: Category Date Time Status ABDOMEN & PELVIS CT W/O CONTR [CT] Stat CT Scan 04/29/19 17:[address] WITHOUT CONTRAST [CT] Stat CT Scan 04/29/19 16:[address] WITHOUT CONTRAST [CT] Stat CT Scan 04/29/19 16:10 Ordered - Medications Given in the ED: ED Medications Discontinued Medications Generic Name Dose Route Start Last Admin Trade Name Jillian PRN Reason Stop Dose Admin Morphine Sulfate 4 mg 04/29/19 17:19 04/29/19 17:19 Morphine Injection - IVPUSH 04/29/19 17:20 4 mg ONCE ONE Administration Sodium Chloride 1,000 ml 04/29/19 16:12 04/29/19 17:19 Normal Saline - IV 04/29/19 16:13 1,000 ml ONCE ONE Administration Medical Decision Making - Medical Decision Making 04/29/19 17:27 53 yo male fall from two stories. here with c/o pain. right lateral rib tenderness. h/o head trauma. will obtain ct head, chest and a/p pt allergic to iodine will obtain ct with out contrast. labs penidng. given morphine for pain control. cxr with seen rib fx. 04/29/19 18:55 *DC/Admit/Observation/Transfer Diagnosis at time of Disposition: Rib pain on right side, Fall from tree, initial encounter - Referrals Referrals: Rebecca Galindo MD [Primary Care Provider] - - Patient Instructions - Post Discharge Activity
[2019-04-29] MEDS ORDERED: IBUPROFEN 400 MG TABLET (FP) PO ONE ×2 (19:56→20:05)
[2019-04-29] MEDS ORDERED: MORPHINE SULFATE 2 MG/ML VIAL IVPUSH PRN (20:55)
--- NOTE | 2019-04-29 23:04 | HP ---
CHIEF COMPLAINT: s/p fall of 20 feet and hit his head while trimming a tree 2 days ago , here with right sided rib pain PCP:Dr. Grajeda HISTORY OF PRESENT ILLNESS: 53 year old male with history of hyperlipidemia, left lower extremity DVT, recently taken off Eliquis as was treated for 6 months who presents with rib pain to right side of his body. He reports chest pain and shortness of breath on deep breathing. Patient sustained a fall of 20 feet while he was trimming a tree. Upon workup he was found to have multiple rib fractures to 4-5-6 to right axillary.He is being admitted for pain management. Recent Travel: denies PAST MEDICAL HISTORY: left extremity DVT hyperlipidemia PAST SURGICAL HISTORY: denies Social History: Smoking:+ tobacco use, smoked for 20 years 1-2 ppd Alcohol:denies Drugs: denies Family History: noncontributory Allergies Iodinated Contrast Media Allergy (Mild, Verified 04/29/19 14:34) HOME MEDICATIONS: Home Medications Medication Instructions Recorded Duloxetine HCl [Cymbalta -] 20 mg PO DAILY 04/03/19 LORazepam [Ativan] 1 mg PO DAILY PRN 04/03/19 Atorvastatin Calcium 20 mg PO HS #30 tablet 04/06/19 REVIEW OF SYSTEMS CONSTITUTIONAL: Absent: fever, chills, diaphoresis, generalized weakness, malaise, loss of appetite, weight change HEENT: Absent: rhinorrhea, nasal congestion, throat pain, throat swelling, difficulty swallowing, mouth swelling, ear pain, eye pain, visual changes CARDIOVASCULAR: Absent: chest pain, syncope, palpitations, irregular heart rate, lightheadedness , peripheral edema RESPIRATORY: Absent: cough, shortness of breath, dyspnea with exertion, orthopnea, wheezing, stridor, hemoptysis GASTROINTESTINAL: Absent: abdominal pain, abdominal distension, nausea, vomiting, diarrhea, constipation, melena, hematochezia GENITOURINARY: Absent: dysuria, frequency, urgency, hesitancy, hematuria, flank pain, genital pain MUSCULOSKELETAL: Absent: myalgia, arthralgia, joint swelling, back pain, neck pain, right sided rib pain SKIN: Absent: rash, itching, pallor HEMATOLOGIC/IMMUNOLOGIC: Absent: easy bleeding, easy bruising, lymphadenopathy, frequent infections ENDOCRINE: Absent: unexplained weight gain, unexplained weight loss, heat intolerance, cold intolerance NEUROLOGIC: Absent: headache, focal weakness or paresthesias, dizziness, unsteady gait, seizure, mental status changes, bladder or bowel incontinence PSYCHIATRIC: Absent: anxiety, depression, suicidal or homicidal ideation, hallucinations. PHYSICAL EXAMINATION Vital Signs - 24 hr 04/29/19 04/29/19 14:25 19:34 Temperature 98.4 F Pulse Rate 96 H Pulse Rate [ 82 Right Radial] Respiratory 18 18 Rate Blood Pressure 112/70 Blood Pressure 118/67 [Left Arm] O2 Sat by Pulse 97 97 Oximetry (%) GENERAL: awake alert and fully oriented no acute distress HEAD: normal , no signs of trauma EYES: pupils equal, round and reactive to light, extraocular movements intact EARS, NOSE, THROAT: ears normal, nares patent NECK: normal range of motion LUNGS: breath sounds equal and clear to auscultation bilaterally no wheezes and no crackles no accessory muscle use HEART: regular rate and rhythm normal S1 and S2 ABDOMEN: soft tender to ride side not distended, normoactive bowel sounds MUSCULOSKELETAL: limited range of motion due to pain to right side of chest no bony deformities or tenderness UPPER EXTREMITIES: 2+ pulses warm well-perfused no cyanosis no peripheral edema LOWER EXTREMITIES: 2+ pulses warm well-perfused no calf tenderness bilateral lower extremity edema present NEUROLOGICAL: no neuro focal deficits normal speech PSYCHIATRIC: cooperative good eye contact appropriate mood and affect SKIN: warm dry normal turgor no rashes or lesions noted normal capillary refill Laboratory Results - last 24 hr 04/29/19 04/29/19 17:15 17:15 WBC 6.4 RBC 4.15 Hgb 12.9 Hct 37.8 D MCV 91.0 MCH 31.1 MCHC 34.2 RDW 13.5 Plt Count 310 MPV 7.0 L D Absolute Neuts (auto) 3.3 Neutrophils % 51.1 Lymphocytes % 36.8 Monocytes % 10.3 H Eosinophils % 1.2 Basophils % 0.6 Nucleated RBC % 0 Sodium 138 Potassium 4.2 Chloride 103 Carbon Dioxide 31 Anion Gap 4 L BUN 11.2 Creatinine 0.8 Est GFR (CKD-EPI)AfAm 119.88 Est GFR (CKD-EPI)NonAf 103.43 Random Glucose 101 Calcium 8.9 Total Bilirubin 0.8 AST 35 ALT 35 Alkaline Phosphatase 88 Total Protein 6.9 Albumin 3.8 ASSESSMENT/PLAN: Mr. Montague is a 53 year old male with history of hyperlipidemia, left lower extremity DVT,recently taken off Eliquis as was treated for 6 months who presents with rib pain to right side of his body. He sustained a fall of 20 feet and hit his head while he was trimming a tree 2 days ago. Upon workup he was found to have multiple rib fractures to 4-5-6 to right axillary line and no internal or intracranial hemorrhage. He is being admitted for pain management. #1 Right Sided Rib Fractures S/P Fall Hemodynamically stable, labs WNL, CT scan with no internal or intracranial hemorrhage Continue with pain management with morphine 2mg IV q 4hours as needed Consider Orthopedic and Pain Management consult in am Monitor respiratory status closely #2 History of Left Lower Extremity DVT bilateral lower extremities swollen --pending bilateral venous doppler --lovenox 40 mg once daily added Visit type - Emergency Visit Emergency Visit: Yes ED Registration Date: 04/29/19 Care time: The patient presented to the Emergency Department on the above date and was hospitalized for further evaluation of their emergent condition. - New Patient This patient is new to me today: Yes Date on this admission: 04/30/19 - Critical Care Critical Care patient: No
[2019-04-30 02:05] VITALS: PULSE 64
[2019-04-30 08:18] LABS: HEMATOCRIT 36.1 % (35.4-49); HEMOGLOBIN 12.5 GM/dL (11.7-16.9); MCH 31.1 pg (25.7-33.7); MCHC 34.8 g/dl (32.0-35.9); MEAN CELL VOLUME 89.5 fl (80-96); MEAN PLT VOLUME 6.6 fl (7.5-11.1); PLATELET COUNT 294 K/MM3 (134-434); RBC 4.03 M/mm3 (4.00-5.60); RDW 13.6 % (11.9-15.9); WHITE BLOOD COUNT 4.4 K/mm3 (4.0-10.0)
[2019-04-30] MEDS ORDERED: traMADol HCL 50 MG TABLET PO PRN (08:37)
[2019-04-30] MEDS ORDERED: MORPHINE SULFATE 2 MG/ML VIAL IVPUSH PRN (08:38)
--- NOTE | 2019-04-30 08:42 | PN ---
Progress Note (short form) - Note Progress Note: fell off of a 20 ft high ladder on Friday, severe side pain since then,not getting better so he came to er for pain control. CBC, BMP 04/30/19 07:10 Vital Signs Period Temp Pulse Resp BP Sys/Puckett Pulse Ox Last 24 Hr 97.5 F-98.4 F 64-96 18-20 90-141/59-77 97-97 s1s2 rrr lungs cta abd soft nt +bs chronic intermittent lower ext edema no calf tenderness aaox3 acute 3 rib fracture 4 days ago, non displaced recent h/o detox 8.6.19 for heroin and alcohol has been on opiates for decades for lower back pain denies recent drug use since detox decrease morphine to taper ibuprofen and tramadol for pain control requested pain magmnt evaluation incentive spirometry
[2019-04-30] MEDS ORDERED: IBUPROFEN 600 MG TABLET (FP) PO SCH (08:45)
[2019-04-30 08:48] LABS: CREATININE 0.8 mg/dL (0.55-1.3); POTASSIUM 4.1 mmol/L (3.5-5.1)
[2019-04-30] MEDS ORDERED: ENOXAPARIN NA (PORCINE) 40 MG/0.4 ML DISP.SYRIN SQ SCH (10:00)
[2019-04-30] MEDS ORDERED: DULoxetine HCL 20 MG CAPSULE.DR PO SCH (10:00)
[2019-04-30] MEDS ORDERED: LIDOCAINE 5% TOPICAL PATCH TP SCH (10:00)
[2019-04-30 11:24] VITALS: BP 113/69; TEMP 97.9
[2019-04-30] MEDS ORDERED: LIDOCAINE PATCH REMOVAL MC SCH (22:00)
[2019-04-30] MEDS ORDERED: ATORVASTATIN CA 20 MG TABLET (FP) PO SCH (22:00)
--- NOTE | 2019-05-01 06:59 | DS ---
Physical Examination Vital Signs: Vital Signs Temperature 97.9 F 04/30/19 10:00 Pulse Rate 64 04/30/19 10:00 Respiratory Rate 20 04/30/19 10:00 Blood Pressure 113/69 04/30/19 10:00 O2 Sat by Pulse Oximetry (%) 97 04/30/19 09:00 Constitutional: Yes: Mild Distress Eyes: Yes: Conjunctiva Clear HENT: Yes: Normocephalic Neck: Yes: Trachea Midline Cardiovascular: Yes: Regular Rate and Rhythm Respiratory: Yes: CTA Bilaterally Gastrointestinal: Yes: Normal Bowel Sounds, Soft Musculoskeletal: Yes: WNL, Other (painover right lateral ribcage) Labs: CBC, BMP 04/30/19 07:10 04/30/19 07:10 Discharge Summary Reason For Visit: RIB PAIN ON RIGHT SIDE Hospital Course: acute 3 rib fracture 4 days ago, non displaced recent h/o detox 8.. for heroin and alcohol has been on opiates for decades for lower back pain denies recent drug use since detox decrease morphine to taper, switch to oral pain medication incentive spirometry patient does not want to wait for painmagmnt eval, will dc home with close outpt f/up risk of opiate use and habituation d/w pt at length, will only prescribe short course - Instructions Diet, Activity, Other Instructions: call for appointment next week Disposition: HOME - Home Medications Comprehensive Discharge Medication List: Ambulatory Orders Duloxetine HCl [Cymbalta -] 20 mg PO DAILY 04/03/19 Atorvastatin Calcium 20 mg PO HS #30 tablet 04/06/19 Ibuprofen [Motrin -] 600 mg PO Q8H tablet 04/30/19 Oxycodone HCl/Acetaminophen [Percocet 10-325 mg Tablet] 1 each PO Q8H #21 tablet MDD 3 tab 04/30/19
== END 2019-04-30 14:30 | disposition home or self-care (01) | DRG 185 ==
LOC: JER 13:49 → JERBED 20:00 → J8W 21:40
PROVIDERS: ADMIT Internal Medicine; ATTEND Internal Medicine
DX: S22.41XA Multiple fractures of ribs, right side, initial encounter for closed fracture (principal); W19.XXXA Unspecified fall, initial encounter; Y92.89 Other specified places as the place of occurrence of the external cause; Y93.89 Activity, other specified; Y99.9 Unspecified external cause status; E78.5 Hyperlipidemia, unspecified; F17.210 Nicotine dependence, cigarettes, uncomplicated
CPT/HCPCS: 36415; 70450-TC; 71046-TC-FY; 71101-TC-RT-FY; 71250-TC; 74176-TC; 80048; 80053; 85025; 85027; 94010; 99285-25; J7030

== ENCOUNTER 2020-04-29 22:54 | Emergency (ER) | payer OTHER ==
[2020-04-29 23:07] VITALS: BP 116/72; PULSE 96; TEMP 98.6; BMI 26.6
--- NOTE | 2020-04-29 23:50 | PDOC ---
History of Present Illness - General Chief Complaint: CVA/TIA Stated Complaint: LEFT ARM WEAKNESS Time Seen by Provider: 04/29/20 23:19 History Source: Patient Exam Limitations: No Limitations - History of Present Illness Initial Comments: 04/29/20 23:43 HPI: 54yo M pmh DVT year ago s/p 6mo eliquis, HLD presenting with left hdn numbness and weakness in the setting of sleeping on his arm in an awkward position. Complaining of weakness, numbness, tingling. (RN) worried because of his prior DVT and they presented to the ED. Denying any other symptoms or concerns. Denies chest pain, headache, dis-coordination, memory problems, facial droop, SOB, fatigue, recent illness. [place] at 100% baseline health before his nap. NIH Stroke Scale - Last Known Well Date/Time & Onset Date Last Known Well: 04/29/20 Time Last Known Well: 18:00 - Initial Evaluation Level of consciousness: Alert Ask patient the month and their age: Answers both correctly Ask patient to open & close eyes; make fist and let go: Obeys both correctly Best gaze (horizontal eye movement): Normal Visual field testing: No visual field loss Facial paresis (Show teeth/raise eyebrows/close eyes tight): Normal symmetrical movement Motor Function: Left Arm: Normal Motor Function: Right Arm: Normal (extends arm 90 (or 45) degrees for 10 seconds without drift Motor Function: Left Leg: Normal (extends leg 30 degrees for 5 seconds without drift) Motor Function: Right Leg: Normal (extends leg 30 degrees for 5 seconds without drift) Limb Ataxia: No ataxia Sensory(Use pinprick test arms,legs,trunk,face/side to side): Normal Best language (Describe picture, name items, read sentences): No Aphasia Dysarthria (read several words): Normal articulation Extinction and Inattention: No abnormality - Total Score NIH Stroke Scale Score: 0 Past History - Travel History Traveled outside of the country in the last 30 days: No Close contact w/someone who was outside of country & ill: No - Medical History Allergies/Adverse Reactions: Allergies Allergy/AdvReac Type Severity Reaction Status Date / Time Iodinated Contrast Media Allergy Mild Verified 04/29/19 14:34 Home Medications: Ambulatory Orders Duloxetine HCl [Cymbalta -] 20 mg PO DAILY 04/03/19 Atorvastatin Calcium 20 mg PO HS #30 tablet 04/06/19 Ibuprofen [Motrin -] 600 mg PO Q8H tablet 04/30/19 Oxycodone HCl/Acetaminophen [Percocet 10-325 mg Tablet] 1 each PO Q8H #21 tablet MDD 3 tab 04/30/19 Anemia: No Asthma: No Cancer: No Cardiac Disorders: No CVA: No COPD: No CHF: No Dementia: No Diabetes: No GI Disorders: No Disorders: No HTN: No Hypercholesterolemia: Yes Kidney Stones: No Liver Disease: No Seizures: No Thyroid Disease: No - Surgical History Abdominal Surgery: No Appendectomy: No Cardiac Surgery: No Cholecystectomy: No Lung Surgery: No Neurologic Surgery: No Orthopedic Surgery: No - Reproductive History Testicular Surgery: No - Immunization History Immunization Up to Date: Yes - Psycho-Social/Smoking History Smoking Status: No Smoking History: Former smoker Have you smoked in the past 12 months: No Number of Cigarettes Smoked Daily: 10 Information on smoking cessation initiated: Yes 'Breaking Loose' booklet given: 04/03/19 - Substance Abuse Hx (Audit-C & DAST Scrn) How often the patient has a drink containing alcohol: Never Score: In Men: 4 or > Positive; In Women: 3 or > Positive: 0 Screen Result (Pos requires Nsg. Audit-10AR): Negative Review of Systems - Review of Systems Able to Perform ROS?: No (acuity of condition) Is the patient limited Greek proficient: Yes *Physical Exam - Vital Signs Last Vital Signs Temp Pulse Resp BP Pulse Ox 98.6 F 96 H 18 116/72 98 04/29/20 23:03 04/29/20 23:03 04/29/20 23:03 04/29/20 23:03 04/29/20 23:22 - Physical Exam 04/30/20 00:02 Vitals reviewed, AFVSS GEN: Well appearing, appears stated age, NAD, comfortable. AAOx3. HEENT: NCAT, EOMI, PERRL. Sclera anicteric, noninjected. No facial asymmetry. Moist mucous membranes. Normal voice. Trachea midline. CV: RRR, S1/S2, no murmurs / rubs / gallops appreciated. LUNG: CTABL, normal work of breathing. No wheezes, rales, rhonchi. No cough. Speaking full sentences. GI: Soft, NTND, +BS, no guarding, no rebound. No masses. EXTREMITIES: 2+ distal pulses. No clubbing / cyanosis / edema. No gross deformity in any extremity. SKIN: Warm, dry, no rashes appreciated, non-jaundiced. PSYCH: Normal mood and affect. Cooperative and appropriate. NEURO: CN grossly intact. Moving all extremities well. Normal strength and sensation grossly. Full Neuro: Strength 5+ biceps, triceps, weak thumb abduction, finger extension, brachioradialis, hip flexors / extensors / foot dorsiflexion / plantarflexion Sensation normal throughout to light touch with numbness isolated to dorsum of left hand Reflexes not assessed Romberg negative [id number] and heel-[place] normal (+No dysmetria) Rapid alternating movements normal (No dysdiadokinesis) Pronator drift not assessed Gait normal Cranial nerves: CN 1: Not assessed CN 2: Normal visual bonilla and acuity CN 3/4/6: EOMI CN 5: Normal facial sensation CN 7: Normal facial movement CN 8: Symmetric hearing soft sounds CN 9: Uvula midline and normal articulation CN 10: Uvula midline and normal articulation CN 11: Normal shrug / head turn strength CN 12: Normal tongue movement A&Ox3, normal remote and recent recall. Medical Decision Making - Medical Decision Making 04/29/20 23:44 54yo M pmh DVT, HLD, presenting with signs and symptoms consistent with a Friday palsy. Patient activated as code [place] at triage, CT head without acute findings, report called back by radiology. Placed in a brace to prevent contracture development, referral to neurology and orthopaedic surgery (incidentally found to have left ring finger trigger finger). Expectations, return precautions, follow up discussed. Understanding verbalized. Dispo: Home with follow up. Discharge - Discharge Information Problems reviewed: Yes Clinical Impression/Diagnosis: Friday night palsy Qualifiers: Laterality: left Qualified Code(s): G56.32 - Lesion of radial nerve, left upper limb Condition: Stable Disposition: HOME - Admission No - Follow up/Referral Referrals: Bigg Oakley DPM [Primary Care Provider] - Bertram Daugherty DO [Staff Physician] - Alberto Mondragon MD [Staff Physician] - - Patient Discharge Instructions Patient Printed Discharge Instructions: Radial Tunnel Syndrome Additional Instructions: You were seen and evaluated for left hand numbness and weakness. You were diagnosed with "Friday Night Palsy" or compression of the radial nerve. This should improve spontaneously over days to weeks. You have been provided a referral to Dr. Daugherty (orthopaedic surgery) for your contracted finger. Please call to make an appointment. You were also referred to Dr. Mondragon (neurology) for your nerve compression, please call to make an appointment if you fail to have improvement after 1-2 weeks. Return to the ED for any new or concerning symptoms including speech difficulty, severe headache, difficulty walking, or anything else you find concerning. - Post Discharge Activity
--- NOTE | 2020-04-30 00:03 | PDOC ---
Documentation entered by Yecenia Vee SCRIBE, acting as scribe for Terrie Daniel MD. Terrie Daniel MD: This documentation has been prepared by the Nanda zimmer Sydney, SCRIBE, under my direction and personally reviewed by me in its entirety. I confirm that the documentation accurately reflects all work, treatment, procedures, and medical decision making performed by me. Attending Attestation - Resident Resident Name: PhilBranden - ED Attending Attestation I have performed the following: I have examined & evaluated the patient, The case was reviewed & discussed with the resident, I agree w/resident's findings & plan, Exceptions are as noted - HPI HPI: 04/30/20 00:02 Patient is a 54 year old male with a significant past medical history of DVT (on Eliquis), HLD who presents to the ED with left hand weakness and numbness secondary to sleeping on his arm. Began ~3 hours prior to presentation. States has had tingling and weakness in his arm after sleeping on it in the past but the weakness persisted for longer and was more severe this time which prompted his visit to the ED. Denies fever, chills, headache, shortness of breath, chest pain, abdominal pain, nausea, vomiting, diarrhea, or urinary changes. Allergies: iodinated contrast media PCP: Dr. Oakley - Physicial Exam PE: 04/30/20 00:10 General: well appearing, NAD HEENT: NCAT, EOMI Neuro: Aox3, LE strength 5/5 b/l, +wrist drop on L, +decreased extension of digits on L as well as abduction of first digit on L, +decreased sensation to dorsum of L hand, +radial pulses, flexion/extension and elbow 5/5 b/l, +decreased strength brachioradialis on L, ambulatory with steady gait, face symmetric, tongue/uvula midline, speech fluent - Medical Decision Making 04/30/20 00:14 54 yo M with likely radial nerve palsy/friday night palsy given report of patient sleeping outside on a lounge chair with arm rests prior to onset of symptoms and weakness and numbness in distribution of radial nerve. No other focal deficits to suggest CVA. CT head performed upon patient arrival given report of LUE weakness without any concerning findings. Plan: -splint placed on L arm -d/c with return precautions, ortho referral for f/u This clinical encounter is taking place during a federal and state health care emergency attributable to the novel [place] Virus pandemic. The [place] of the Department of Health and Human Services has declared, pursuant to the Public Health Service Act 319F-3 (42 U.S.C. 247d-6d), that a covered persons activities related to medical countermeasures against COVID-19 will be immune from liability under Federal and State law. Discharge - Discharge Information Problems reviewed: Yes Clinical Impression/Diagnosis: Friday night palsy Qualifiers: Laterality: left Qualified Code(s): G56.32 - Lesion of radial nerve, left upper limb Condition: Stable Disposition: HOME - Follow up/Referral Referrals: Alberto Mondragon MD [Staff Physician] - Bertram Daugherty DO [Staff Physician] - Bigg Oakley DPM [Primary Care Provider] - - Patient Discharge Instructions Patient Printed Discharge Instructions: Radial Tunnel Syndrome Additional Instructions: You were seen and evaluated for left hand numbness and weakness. You were diagnosed with "Friday Night Palsy" or compression of the radial nerve. This should improve spontaneously over days to weeks. You have been provided a referral to Dr. Daugherty (orthopaedic surgery) for your contracted finger. Please call to make an appointment. You were also referred to Dr. Mondragon (neurology) for your nerve compression, please call to make an appointment if you fail to have improvement after 1-2 weeks. Return to the ED for any new or concerning symptoms including speech difficulty, severe headache, difficulty walking, or anything else you find concerning. - Post Discharge Activity
== END 2020-04-30 00:03 | disposition home or self-care (01) ==
LOC: JER 22:54
DX: G56.32 Lesion of radial nerve, left upper limb (principal)
CPT/HCPCS: 70450-TC; 71045-TC-FY; 99285-25

== ENCOUNTER 2021-02-19 01:07 | Emergency (ER) | payer OTHER ==
[2021-02-19 01:17] VITALS: BP 137/76; PULSE 89; TEMP 98.3; BMI 25.8
[2021-02-19] MEDS ORDERED: IBUPROFEN 400 MG TABLET (FP) PO ONE (01:57)
== END 2021-02-19 03:45 | disposition home or self-care (01) ==
LOC: JER 01:07
DX: S52.514A Nondisplaced fracture of right radial styloid process, initial encounter for closed fracture (principal)
CPT/HCPCS: 73090-TC-RT-FY; 73110-TC-RT-FY; 73130-TC-RT-FY; 99284-25

== ENCOUNTER 2021-03-03 16:16 | Emergency (ER) | payer OTHER ==
[2021-03-03 17:05] VITALS: BMI 25.8
[2021-03-03 17:35] VITALS: BP 117/84; PULSE 84; TEMP 98
== END 2021-03-03 18:17 | disposition left against medical advice (07) ==
LOC: JER 16:16
DX: F11.10 Opioid abuse, uncomplicated (principal)
CPT/HCPCS: 93005; 93010; 99283-25

== ENCOUNTER 2022-04-05 21:44 | Emergency (ER) | payer OTHER ==
[2022-04-05 22:01] VITALS: BP 94/51; PULSE 79; RESP 20; BMI 26.6
[2022-04-05] MEDS ORDERED: SODIUM CHLORIDE 0.9% 500 ML INFUS.BAG IV ONE (23:41)
== END 2022-04-06 01:10 | disposition left against medical advice (07) ==
LOC: JER 21:44
DX: R41.82 Altered mental status, unspecified (principal)
CPT/HCPCS: 93005; 93010; 99284-25